=== PATIENT | female | born 1965 | race Caucasian/White ===

== ENCOUNTER 2021-10-26 20:59 | Emergency (ER) | payer MEDICAID ==
[~2021-10-26] VITALS: Ht 172.7 cm; Wt 90.7 kg
[2021-10-26] MEDS ORDERED: CYMBALTA30 MG PO (21:05)
[2021-10-26] MEDS ORDERED: NALTREXONE50 MG PO (21:07)
[2021-10-26] MEDS ORDERED: DULOXETINE HCL60 MG PO (21:08)
[2021-10-26] MEDS ORDERED: AMLODIPINE BESYL5 MG PO (21:09)
[2021-10-26] MEDS ORDERED: ATORVASTATIN CA80 M1 PO (21:10)
[2021-10-26] MEDS ORDERED: VENLAFAXINE150 MG PO (21:10)
[2021-10-26] MEDS ORDERED: MINIPRESS2 M2 PO (21:10)
[2021-10-26] MEDS ORDERED: ZETIA10 MG PO (21:11)
[2021-10-26] MEDS ORDERED: LOPRESSOR100 M1 PO (21:11)
[2021-10-26] MEDS ORDERED: REMERON SOLTAB30 MG PO (21:11)
[2021-10-26 21:49] LABS: BASO # 0.1 10*3/uL (0.0-0.1); BASO % 0.8 % (0.0-1.0); EOS % 0.2 % (1.0-4.0); HEMATOCRIT 38.8 % (37.0-47.0); LYMPH # 1.5 10*3/uL (1.3-4.4); LYMPH % 16.3 % (27.0-41.0); MEAN CELL VOLUME 90.2 fl (81.0-99.0); MEAN CORPUSCULAR HGB CONC 33.2 g/dl (33.0-37.0); MEAN PLATELET VOLUME 9.4 fl (9.6-12.3); MONO # 1.1 10*3/uL (0.1-1.0); NEUT # 6.3 10*3/uL (2.3-7.9); NEUT % 70.5 % (47.0-73.0); PLATELET COUNT AUTOMATED 253 10*3/uL (130-400); RED CELL DISTRI WIDTH 14.8 % (0-14.5); WHITE BLOOD COUNT 8.9 10*3/uL (4.8-10.8)
[2021-10-26 22:05] LABS: ALKALINE PHOSPHATASE 66 U/L (45-117); BUN 15 mg/dl (7-24); CHLORIDE 102 mmol/L (98-107); CREATININE 0.78 mg/dL (0.55-1.02); POTASSIUM 3.5 mmol/L (3.5-5.1); SGOT/AST 67 IU/L (3-35); SGPT/ALT 74 U/L (12-78); SODIUM 135 mmol/L (136-145)
[2021-10-26 22:08] LABS: ETHYL ALCOHOL < 3.0 mg/dl (<3)
[2021-10-26 22:20] LABS: BILIRUBIN Negative (Negative); BLOOD Negative (Negative); CLARITY Clear (Clear); COLOR Yellow (Yellow); GLUCOSE Negative (Negative); KETONE 2+ (Negative); LEUKO ESTERASE Negative (Negative); NITRITE Negative (Negative); PH 6.5 (4.5-8.0); SPECIFIC GRAVITY >= 1.030 (1.001-1.030)
[2021-10-26 22:29] LABS: URINE AMPHETAMINES < 1000 (1000ng/ml); URINE BARBITURATES > 200 (200ng/ml); URINE BENZODIAZEPINES < 200 (200ng/ml); URINE CANNABINOIDS (THC) < 50 (50ng/ml); URINE COCAINE < 300 (300ng/ml); URINE METHADONE < 300 (300ng/ml); URINE OPIATES < 300 (300ng/ml)
[2021-10-26 22:33] LABS: URINE PHENCYCLIDINE < 25 (25ng/ml)
== END 2021-10-27 04:13 | disposition home or self-care (01) ==
LOC: ED 20:59
PROVIDERS: Physician Assistant
DX: F10.230 Alcohol dependence with withdrawal, uncomplicated (principal); Z79.899 Other long term (current) drug therapy; Z88.1 Allergy status to other antibiotic agents; Z88.8 Allergy status to other drugs, medicaments and biological substances; Y90.9 Presence of alcohol in blood, level not specified